=== PATIENT | male | born 1995 | race Hispanic/Latino ===

== ENCOUNTER 2018-05-06 11:10 | Observation (INO) | payer SELFPAY ==
[~2018-05-06 11:10] MED LIST: ISOVUE-370 76%-LOCM 1 ML ONE
[2018-05-06] MEDS ORDERED: CEFAZOLIN 1 GM VIAL ONE (11:19)
[2018-05-06] MEDS ORDERED: Sodium Chloride 0.9% 100 ML ONE (11:19)
[2018-05-06] MEDS ORDERED: Adacel (T-DAP) 0.5 ML SYRINGE ONE (11:19)
[2018-05-06] MEDS ORDERED: Fentanyl 100 MCG/2 ML VIAL ONE ×2 (11:31→16:33)
[2018-05-06 12:07] LABS: ALT (SGPT) 26 U/L (8-55); AST (SGOT) 21 U/L (5-34); Albumin 4.7 g/dL (3.5-5.0); Alkaline Phosphatase 75 U/L (40-150); Anion Gap 16 mmol/L (10-20); BUN (Urea Nitrogen) 15 mg/dL (8.9-20.6); Bilirubin, Total 0.8 mg/dL (0.2-1.2); Calc. Creatinine Clearance 0 mL/min (70-130); Calcium 9.6 mg/dL (7.8-10.44); Carbon Dioxide 20 mmol/L (22-29); Chloride 106 mmol/L (98-107); Estimated GFR-MDRD Greater than 90; Globulin 2.8 g/dL (2.4-3.5); Glucose 110 mg/dL (70-105); Potassium 3.3 mmol/L (3.5-5.1); Protein, Total 7.5 g/dL (6.0-8.3); Sodium 139 mmol/L (136-145)
[2018-05-06 12:08] LABS: Mean Corpuscular HGB CONC 33.4 g/dL (32.0-36.0); Mean Corpuscular Hemoglobin 31.7 pg (27.0-31.0); Mean Corpuscular Volume 94.9 fL (78.0-98.0); Mean Platelet Volume 11.2 fL (7.4-10.4); Platelet Count 148 thou/uL (130-400); RBC Distribution Width 11.2 % (11.5-14.5); Red Blood Cell (RBC) Count 5.04 mill/uL (4.70-6.10); White Blood Cell (WBC) Count 8.7 thou/uL (4.8-10.8)
[2018-05-06 12:09] LABS: Band 1 % (5-11); Eosinophils 4 % (0-10); Lymphocytes 60 % (21-51); MDiff Complete? YES; Neutrophil 34 % (42-75)
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
[2018-05-06] MEDS ORDERED: Morphine 2 MG/ML SYRINGE ONE ×2 (15:24→19:06)
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
[2018-05-06] MEDS ORDERED: Ondansetron PF 4 MG/2 ML Vial IVP PRN (19:51)
[2018-05-06] MEDS ORDERED: Promethazine HCl 25 MG/ML VIAL IM PRN ×2 (19:51)
[2018-05-06] MEDS ORDERED: Dextrose 50% Abboject 50 ML SYRINGE SLOW IVP PRN (19:51)
[2018-05-06] MEDS ORDERED: Dextrose 5% in Water 1,000 ML IV PRN (19:51)
[2018-05-06] MEDS ORDERED: Ondansetron ODT 4 MG TAB PO PRN (19:51)
[2018-05-06] MEDS ORDERED: hydrALAZINE 20 MG/ML VIAL SLOW IVP PRN (19:51)
[2018-05-06] MEDS ORDERED: traMADol HCl 50 MG TAB PO PRN ×2 (20:17)
[2018-05-06] MEDS ORDERED: Ketorolac Tromethamine 30 MG/ML VIAL IVP SCH (20:30)
[2018-05-06] MEDS: Cyclobenzaprine 10 MG TAB PO PRN (20:49)
[2018-05-06] MEDS: Ibuprofen 800 MG TAB PO SCH (21:00)
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
[2018-05-06 22:32] VITALS: BMI 37.5
[2018-05-07] MEDS: Cephalexin 250 MG CAP PO SCH ×3 (00:11→12:26)
[2018-05-07] MEDS: Acetaminophen 500 MG TAB PO SCH ×3 (00:11→12:26)
[2018-05-07] MEDS: Ibuprofen 800 MG TAB PO SCH ×2 (05:23→14:55)
[2018-05-07] MEDS: Cyclobenzaprine 10 MG TAB PO PRN (05:23)
[2018-05-07 06:23] LABS: #Eosinphils 0.2 thou/uL (0.0-0.7); #Monocytes 0.8 thou/uL (0.11-0.59); #Neutrophils 7.6 thou/uL (1.40-6.50); %Basophils 0.2 % (0.0-1.0); %Eosinophils 1.6 % (0.0-10.0); %Lymphocytes 25.7 % (21.0-51.0); %Monocytes 7.2 % (0.0-10.0); %Neutrophils 65.3 % (42.0-75.0); Hemoglobin 13.9 g/dL (14.0-18.0); Mean Corpuscular HGB CONC 34.2 g/dL (32.0-36.0); Mean Corpuscular Hemoglobin 32.1 pg (27.0-31.0); Mean Corpuscular Volume 93.8 fL (78.0-98.0); Mean Platelet Volume 11.6 fL (7.4-10.4); Platelet Count 117 thou/uL (130-400); Platelet Morphology Comment Appears Decreased; RBC Distribution Width 11.2 % (11.5-14.5); RBC Morphology Normal; Red Blood Cell (RBC) Count 4.33 mill/uL (4.70-6.10); White Blood Cell (WBC) Count 11.7 thou/uL (4.8-10.8)
[2018-05-07 16:17] VITALS: BP 105/73; TEMP 98.6
[2018-05-08] MEDS ORDERED: Aspirin 325 mg Enteric Coated Tablet PO SCH (09:00)
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
== END 2018-05-07 17:15 | disposition home or self-care (01) ==
LOC: ERS 11:10 → SURG B 17:51
PROVIDERS: ADMIT Specialist; ATTEND Specialist
DX: S82.142B Displaced bicondylar fracture of left tibia, initial encounter for open fracture type I or II (principal); S72.432A Displaced fracture of medial condyle of left femur, initial encounter for closed fracture; F17.200 Nicotine dependence, unspecified, uncomplicated; W32.0XXA Accidental handgun discharge, initial encounter
CPT/HCPCS: 36415; 80053; 85025; 90471; 90715; 96365; 96374; 96375; 96376; G0378; G0390; J0690; J1885; J2270; J3010; J7050